=== PATIENT | female | born 2000 | race Two or more races ===

== ENCOUNTER 2024-03-19 04:37 | Inpatient (IN) | payer BC, MEDICAID, SELFPAY ==
[2024-03-19] VITALS (318 sets, daily range): BP systolic 0–143; BP diastolic 0–87; PULSE 64–161; RESP 16–18; TEMP 36.1–37.7; O2SAT 91–100; BMI 26.5
[2024-03-19] MEDS: RINGERS LACTATED 1000 ML 1,000 ML 999 ML IV (05:20)
[2024-03-19 05:50] LABS: Basophils % (Auto) 0 % (0-2.5); Eosinophils % (Auto) 1 % (0-10); Hematocrit 36.5 % (36.0-46.0); Hemoglobin 13.1 g/dL (12.0-16.0); Immature Granulocytes % (Auto) 1 % (0-0); Immature Granulocytes Auto 0.07 Thou/mm3 (0.00-0.00); Lymphocytes # (Auto) 1.6 Thou/mm3 (1.0-4.8); Lymphocytes % (Auto) 19 % (10-50); Mean Corpuscular HGB Conc 35.9 g/dl (31.0-37.0); Mean Corpuscular Hemoglobin 32.2 pg (25.0-35.0); Mean Corpuscular Volume 90 fL (80-100); Monocytes # (Auto) 0.7 Thou/mm3 (0.0-0.8); Monocytes % (Auto) 9 % (0-12); Neutrophils # (Auto) 6.1 Thou/mm3 (1.8-7.7); Neutrophils % (Auto) 71 % (37-80); Nucleated Red Blood Cell % 0 /100 WBC (0); Platelet Count 145 Thou/mm3 (140-440); RDW Standard Deviation 43.5 fL (36.4-46.3); Red Blood Count 4.07 Miln/mm3 (4.00-5.20); White Blood Count 8.5 Thou/mm3 (3.6-11.0)
[2024-03-19] MEDS: RINGERS LACTATED 1000 ML 1,000 ML 100 ML IV ×3 (06:20→09:04)
[2024-03-19 06:38] LABS: Syphilis Nonreactive (Nonreactive)
--- NOTE | 2024-03-19 10:18 | PD.LDHP ---
Documentation for date of: 03/19/24 OB Labor/Induct. HPI History of Present Illness History of present illness: 23 yo at 40+2 presents in labor. No lof, vb, normal movement. is uncomplicated. History of Present Adequate Care: Yes Meds Home Medications and Allergies Home Medications ?Medication ?Instructions ?Recorded ?Confirmed ?Type vit no.95-ferrous 1 tab PO DAILY 03/19/24 03/19/24 History fumarate 28 mg-folic acid 800 mcg tablet () Allergies Allergy/AdvReac Type Severity Reaction Status Date / Time No Known Allergies Allergy Unverified 03/19/24 08:27 OB Exam Physical Exam Vital signs: Temp Pulse Resp BP Pulse Ox 98.1 F 70 18 118/67 99 03/19/24 07:18 03/19/24 10:10 03/19/24 07:18 03/19/24 10:10 03/19/24 10:17 OB Results Labs 03/19/24 05:10 Labs: Short CBC 03/19/24 Range/Units 05:10 WBC 8.5 (3.6-11.0) Thou/mm3 Hgb 13.1 (12.0-16.0) g/dL Hct 36.5 (36.0-46.0) % Plt Count 145 (140-440) Thou/mm3 OB Assessment & Plan Assessment and Plan (1) Spontaneous onset of labor: Status: Acute Additional Plan Additional Plan Comment: Admit for spontaneous labor at 40 weeks Expectant management Desires pain control EFW 3700g, Cat 1, continuous monitoring with epidural GBS negative Anticipate PPH low
[2024-03-19] MEDS: OXYTOCIN in NS 30 units 30 UNIT/500 ML BAG IV (17:46)
[2024-03-19] MEDS: MINERAL OIL 30 ML UDC TOP (21:50)
[2024-03-19] MEDS: OXYTOCIN in NS 20 units 20 UNIT/1,000 ML BAG 125 UNIT IV (22:11)
[2024-03-19] MEDS: MISOPROSTOL 200 mCg TABLET 800 MCG PR (22:13)
--- NOTE | 2024-03-19 22:55 | OBDSUM_ITS ---
Vacuum Assisted Delivery Additional Comments Additional comments: 23 yo at 40+2 presented in labor. She progressed to complete and delivered a female in MERCY position, weighing 3130g Apgars 9/9. Infant placed on maternal abdomen and cord was clamped and cut after delayed 1 minutes. Placenta delivered with gentle traction in tact with 3vessel cord. She had two periurethral tears which were repaired with 2-0 vicryl. Misoprostol 800mcg WI x1 given. Fundus was firm. All counts correct x2. Patient and stable when I left the room. EBL 300cc. Data (Peter) Data : 1 Para: 0 Term: 0 : 0 : 0 Delivery Data (Peter) Labor Data ROM Date: 03/19/24 ROM Time: 20:11 Rupture Type: AROM Amniotic Fluid: Clear Delivery Data Labor Onset Stage 1 Date: 03/19/24 Labor Onset Stage 1 Time: 07:25 Labor Onset Stage 2 Date: 03/19/24 Labor Onset Stage 2 Time: 21:30 Delivery Date: 03/19/24 Delivery Time: 22:07 Placenta Delivery Date: 03/19/24 Placenta Delivery Time: 22:11 Delivered by: Candace Smyth Delivery nurse: Theresa Padron Other staff at delivery: Nursery Nurse Other staff at delivery: Yadira Cox Delivery Method Delivery: Vaginal Delivery Type: Spontaneous Presentation: Vertex Anesthesia Type Primary Anesthesia: Epidural Placenta Placenta Delivery: Spontaneous Episiotomy Episiotomy: None Lacerations #2: Periurethral: x2 EBL Estimated blood loss (ml): 300 Umbilical Cord Umbilical Vessels: 3 Nuchal Cord: None Complications Complications: None [place] Data (Peter) [place] Data Gender: Female Infant Weight Grams: 3130 1 Minute Total: 9 5 Minute Total: 9
[2024-03-19] MEDS: IBUPROFEN TAB 400 MG TABLET 800 MG PO (23:04)
[2024-03-19] MEDS: BENZO/LANO/ALOE (Dermoplast) 60 GM CAN 1 SPRAY TOP (23:20)
[2024-03-20] VITALS (8 sets, daily range): BP systolic 100–108; BP diastolic 62–69; PULSE 74–91; RESP 16–18; TEMP 36.5–36.8; O2SAT 97–100
--- NOTE | 2024-03-20 05:39 | ESDS_ITS ---
DS: Providers Provider Date of admission: 03/19/24 05:15 Primary care physician: Elicia Glaser CNM Admitting Provider: Candace Smyth MD Attending Provider on Admission: Candace Smyth MD Consults: 03/19/24 23:53 Referral Routine Comment: Attending Provider on DC: Candace Smyth MD Discharging Provider: Candace Smyth MD DS: Diagnosis Problem List Completed Was Problem List Reviewed/Reconciled?: Yes Summary/Hosp Course Brief History: 23 yo at 40+2 presents in labor. No lof, vb, normal movement. is uncomplicated. Hospital course: She progressed to complete and delivered a female in MERCY position, weighing 3130g Apgars 9/9 EBL 300cc. She had an uncomplicated course except for anemia with hgb of 9.3 on PPD2. She was otherwise hemodynamically stable with no ongoing bleeding and no symptoms of anemia and was discharged home with iron supplementation. She was discharged on PPD2 meeting all milestones. Time Spent with Patient Time attestation: Total time spent providing and/or coordinating discharge services: Exam Vital Signs Temp Pulse Resp BP Pulse Ox 98.8 F 83 16 107/64 100 03/19/24 23:42 03/20/24 00:00 03/19/24 16:00 03/20/24 00:00 03/20/24 00:04 Narrative Exam General: NAD RESP: normal work of breathing Abdomen: soft, gravid, non-tender, no rebound or guarding, Fundus firm and at approximate levl of the umbilicus Extremities: no pain with palpation of calves and no unilateral swelling Discharge Plan Plan Patient Disposition: HOME (Self Care) Prescriptions/Referrals Prescriptions/Med Rec: New acetaminophen 325 mg Tablet 650 mg PO Q4H PRN (Reason: See Comments) Qty: 20 0RF ibuprofen 400 mg Tablet 800 mg PO Q8H PRN (Reason: See Comments) Qty: 20 0RF docusate sodium [Colace] 100 mg capsule 100 mg PO QDAY Qty: 20 0RF ferrous sulfate 325 mg (65 mg iron) tablet 325 mg PO QDAY Qty: 30 0RF No Action PNV cmb#95-ferrous fumarate-FA [] 28 mg iron- 800 mcg Tablet 1 tab PO DAILY Referrals: [place],Elicia, CNM [Primary Care Provider] - Patient/Caregiver Discharge Instructions Education Materials: After a Vaginal Print Language: Vietnamese Stand Alone Forms: Rosario Award Info., Patient Portal Info Letter Discharge Order Discharge Orders: Discharge (Routine); Ordered 03/21/24 Ordered By: Candace Smyth Planned Discharge Date 03/21/24
--- NOTE | 2024-03-20 05:39 | PD.LDPPPRG ---
Subjective Subjective Interval history: 23 yo s/p at 40+2. PPD#1 Patient doing well no issues . Baby at beside. Pain well controlled, bleeding within normal limits. Voiding without issues. No lightheadedness when walking. Exam Vital Signs Temp Pulse Resp BP Pulse Ox 98.8 F 83 16 107/64 100 03/19/24 23:42 03/20/24 00:00 03/19/24 16:00 03/20/24 00:00 03/20/24 00:04 Narrative Exam General: NAD RESP: normal work of breathing Abdomen: soft, gravid, non-tender, no rebound or guarding, Fundus firm and at approximate levl of the umbilicus Extremities: no pain with palpation of calves and no unilateral swelling Objective Labs 03/20/24 06:50 Labs: Laboratory Results - last 24 hr 03/19/24 05:10 WBC 8.5 RBC 4.07 Hgb 13.1 Hct 36.5 MCV 90 MCH 32.2 MCHC 35.9 RDW Std Deviation 43.5 Plt Count 145 Neut % (Auto) 71 Lymph % (Auto) 19 [place] % (Auto) 9 Eos % (Auto) 1 Baso % (Auto) 0 Neut # (Auto) 6.1 Lymph # (Auto) 1.6 [place] # (Auto) 0.7 Eos # (Auto) 0.0 Baso # (Auto) 0.0 Immature Gran # (Auto) 0.07 H Absolute Nucleated RBC 0.00 Immature Gran % 1 H Nucleated RBC % 0 Syphilis Serology Nonreactive Blood Type A Positive Antibody Screen NEGATIVE Blood Bank Wristband ID Yes Assessment & Plan Problem List (1) Vaginal delivery: Status: Acute (2) Anemia: Status: Acute Plan Comment Plan Comment: Doing well . Vitals wnl, benign exam. Hemodynamically stable, with anemia. Plan: -Continue routine care -Hemodynamically stable Hgb 13.1 -> 300cc -> 9.3, normal UOP, normal VS -Regular diet - Ferrous sulfate for anemia -Encourage ambulation -Anticipate discharge home tomorrow with Time Spent With Patient Time: Total time spent is greater than 50% in coordination of care (as documented) at patient's floor/unit and/or counseling patient:
[2024-03-20] MEDS: IBUPROFEN TAB 400 MG TABLET 800 MG PO ×2 (07:30→16:08)
[2024-03-20 07:40] LABS: Basophils % (Auto) 0 % (0-2.5); Eosinophils % (Auto) 0 % (0-10); Hematocrit 26.1 % (36.0-46.0); Hemoglobin 9.3 g/dL (12.0-16.0); Immature Granulocytes % (Auto) 1 % (0-0); Immature Granulocytes Auto 0.06 Thou/mm3 (0.00-0.00); Lymphocytes % (Auto) 8 % (10-50); Mean Corpuscular HGB Conc 35.6 g/dl (31.0-37.0); Mean Corpuscular Hemoglobin 31.8 pg (25.0-35.0); Mean Corpuscular Volume 89 fL (80-100); Monocytes # (Auto) 1.2 Thou/mm3 (0.0-0.8); Monocytes % (Auto) 9 % (0-12); Neutrophils # (Auto) 10.7 Thou/mm3 (1.8-7.7); Neutrophils % (Auto) 82 % (37-80); Nucleated Red Blood Cell % 0 /100 WBC (0); Platelet Count 148 Thou/mm3 (140-440); RDW Standard Deviation 43.6 fL (36.4-46.3); Red Blood Count 2.92 Miln/mm3 (4.00-5.20)
--- NOTE | 2024-03-20 07:52 | PC.NURSE ---
Dr. Smyth called and made aware of patients labs, MD stated continue to monitor for tachycardia or changes in vital signs. No new orders
--- NOTE | 2024-03-20 09:57 | PC.CC ---
SS referral for pt Esperanza Levin, 23 yr old female for hx of anxiety. From [facility] Zendejas, there are no further concerns. ASW met with pt at bedside. At time of encounter pts life partner and FOB Manan Chen [phone] is at bedside, ASW attained verbal consent to continue with assessment. ASW introduced self and role in pt care. ASW explained reason for encounter and limitations of confidentiality. Pt expressed understanding at this time. At time of encounter pt presented engaged and receptive to encounter. Pt kept direct eye contact and spoke in clear, even tone. Pt presented with normal affect. At this time pt is denying any SI/HI. Pt denies any hx of MH issues. Pt denies any hx of accessing MH services. Pt confirms experiencing anxiety during . Per pt she only experienced a single episode and has not experienced any anxiety or other symptoms since. Per pt she did not access services. ASW offered pt resources at this time and pt has declined, stating she is aware of how to access services as needed. ASW reviewed signs and symptoms of depression and how to access services as needed. Pt receptive to information provided. Per pt this is couples first child. Per pt she has all needs for time of D/c. Pt identifies her mom Megan Manriquez [phone] as second support person. Per pt she has family support. At time of D/c pt and will D/c to their residence at [address] FOB to provide transport. Pt and FOB are both gainfully employed. Pt is connected with private health coverage and [employer]. Per pt she did not qualify for other community services (WIC/SNAP/TANF). Per pt now that is born she plans to reapply for WIC. Pt denies any hx of DV. Pt denies any past or present encounters with CWS. Pt denies any hx of substance use.
[2024-03-21] MEDS: IBUPROFEN TAB 400 MG TABLET 800 MG PO (00:16)
[2024-03-21 04:25] VITALS: BP 98/62; PULSE 74; RESP 14; TEMP 36.4; O2SAT 98
--- NOTE | 2024-03-21 07:42 | PD.LDPPPRG ---
Subjective Subjective Interval history: 23 yo s/p at 40+2. PPD#2 Patient stayed overnight due to repeat hearing test, passed on second try. Patient doing well no issues . Baby at beside. Pain well controlled, bleeding within normal limits. Voiding without issues. No lightheadedness when walking. Exam Vital Signs Temp Pulse Resp BP Pulse Ox O2 Del Method 97.6 F 74 14 98/62 98 Room Air 03/21/24 04:25 03/21/24 04:25 03/21/24 04:25 03/21/24 04:25 03/21/24 04:25 03/21/24 04:25 Narrative Exam General: NAD RESP: normal work of breathing Abdomen: soft, gravid, non-tender, no rebound or guarding, Fundus firm and at approximate levl of the umbilicus Extremities: no pain with palpation of calves and no unilateral swelling Objective Labs 03/20/24 06:50 Labs: Laboratory Results - last 24 hr 03/20/24 06:50 WBC 13.0 H D RBC 2.92 L Hgb 9.3 L D Hct 26.1 L D MCV 89 MCH 31.8 MCHC 35.6 RDW Std Deviation 43.6 Plt Count 148 Neut % (Auto) 82 H Lymph % (Auto) 8 L [place] % (Auto) 9 Eos % (Auto) 0 Baso % (Auto) 0 Neut # (Auto) 10.7 H Lymph # (Auto) 1.0 [place] # (Auto) 1.2 H Eos # (Auto) 0.0 Baso # (Auto) 0.0 Immature Gran # (Auto) 0.06 H Absolute Nucleated RBC 0.00 Immature Gran % 1 H Nucleated RBC % 0 Assessment & Plan Problem List (1) Vaginal delivery: Status: Acute (2) Anemia: Status: Acute Plan Comment Plan Comment: Doing well . Vitals wnl, benign exam. Hemodynamically stable, with anemia. Lab was not drawn this morning due to patient . On serial exams, no concern for ongoing bleeding or symptomatic anemia requiring transfusion. Plan for discharge home with iron supplementation. Plan: -Meeting all milestones, discharge home today -Hemodynamically stable Hgb 13.1 -> 300cc -> 9.3, normal UOP, normal VS -Regular diet - Ferrous sulfate for anemia -Encourage ambulation Time Spent With Patient Time: Total time spent is greater than 50% in coordination of care (as documented) at patient's floor/unit and/or counseling patient:
[2024-03-21 08:43] VITALS: BP 99/61; PULSE 71; RESP 18; TEMP 36.4; O2SAT 98
== END 2024-03-21 11:21 | disposition home or self-care (01) | DRG 807 ==
LOC: S4SX 08:26 → S4NX 03-20 05:55 → S4SX 03-21 06:15 → S4NX 03-21 06:15
PROVIDERS: Admitting Provider Obstetrics & Gynecology; PCP Nurse Practitioner Women's Health; Visit Provider Obstetrics & Gynecology
DX: O48.0 Post-term pregnancy (principal); Z37.0 Single live birth; Z3A.40 40 weeks gestation of pregnancy; O71.82 Other specified trauma to perineum and vulva; O90.81 Anemia of the puerperium
CPT/HCPCS: 36415; 59409; 85025; 86780; 86850; 86900; 86901; J2590; J2795; J3010; J7120; S0191; A9270